=== PATIENT | female | born 1955 | race Caucasian/White ===

== ENCOUNTER → 2016-07-16 | Outpatient (CLI) | payer BC ==
[~2016-07-16] MED LIST: ACET-1256 PO; CALC100T3 PO; OPTIRAY 320 IV PRN; [UNRECOGNIZED DRUG - CODE]; [UNRECOGNIZED DRUG - OTHER]
--- NOTE | 2016-07-16 10:59 | DIAGNOSTIC IMAGING REPORT ---
CT ABD/PELVIS IV AND ORAL CONT CLINICAL HISTORY: Adenopathy. Follow-up examination. COMPARISON STUDY: 08/07/2015 TECHNIQUE: Following the IV administration of 117 mL of Optiray-320, CT scan of the abdomen and pelvis was performed from the lung bases to the proximal femurs. Images are reviewed in the axial, sagittal, and coronal planes. IV contrast was administered without complication. CT DOSE: 584.24 mGy.cm FINDINGS: Lower chest: The lung bases are unremarkable. Liver: There are stable right lobe hepatic hypodense lesions numbering at least 4. The largest measures 19 mm. 2 of the lesions lesions demonstrate peripheral nodular enhancement, favoring hepatic hemangiomas.. Gallbladder: Unremarkable. Spleen: Normal in size and attenuation. Pancreas: Unremarkable. Adrenal glands: Unremarkable. Kidneys: There is symmetric renal cortical enhancement. The kidneys are normal in size without hydronephrosis. Bowel: There are no transition zones indicate bowel obstruction. There are no findings to indicate acute appendicitis. There is no evidence of acute diverticulitis. Peritoneum: There is no intraperitoneal free air or abdominal ascites. Vasculature: The abdominal aorta is normal in course and caliber. Adenopathy: There is been very slight interval increase in the size of mildly enlarged mesenteric lymph nodes. Mildly enlarged aortocaval lymph nodes remain stable Pelvic viscera: There is a stable 22 mm left ovarian cyst/follicle. Skeletal structures: No destructive osseous lesions are seen. There are postsurgical changes of a total right hip arthroplasty. IMPRESSION: 1. Stable hepatic hypodensities, likely representing hemangiomas 2. No evidence of bowel obstruction. No evidence of free air 3. No evidence of acute appendicitis, no evidence of diverticulitis 4. Minimal interval increase in the size of the mildly enlarged mesenteric lymph nodes. Mildly enlarged aortocaval lymph nodes remain stable. 5. Stable 22 mm left ovarian cyst/follicle Electronically signed by: Mariusz Snowden M.D. 07/16/2016 10:57 AM Dictated Date/Time: 07/16/2016 10:49 AM
== END | disposition home or self-care (01) ==
LOC: C.CTS 09:49
PROVIDERS: ATTEND Internal Medicine Gastroenterology
DX: R10.9 Unspecified abdominal pain (principal)

== ENCOUNTER → 2016-08-02 | Outpatient (CLI) | payer BC ==
[~2016-08-02] MED LIST changes: -OPTIRAY 320 IV PRN; +SINCALIDE INJ 1.8 MCG in SODIUM CHLORIDE 0.9% 100ML 100 ML IV ONE
--- NOTE | 2016-08-02 13:05 | DIAGNOSTIC IMAGING REPORT ---
NUCLEAR MEDICINE HEPATOBILIARY SCAN WITH EJECTION FRACTION ANALYSIS CLINICAL HISTORY: Dominant pain COMPARISON STUDY: CT scan dated 07/16/2016 FINDINGS: Patient was injected with 5.5 mCi of technetium 99 M Choletec. Anterior imaging was performed. Hepatic excretion appeared unremarkable. There was normal passage of activity into small bowel. The gallbladder was first visualized on the 10 minute image. At 1 hour, the patient was injected with 1.8 mcg of sincalide utilizing a 30 minute infusion. The gallbladder ejection fraction was normal measuring 92%. IMPRESSION: Normal study. No evidence of cystic duct obstruction. Normal gallbladder ejection fraction of 92%. Electronically signed by: Mariusz Snowden M.D. 08/02/2016 1:04 PM Dictated Date/Time: 08/02/2016 1:02 PM
== END | disposition home or self-care (01) ==
LOC: C.NUCL 10:02
PROVIDERS: ATTEND Internal Medicine Gastroenterology
DX: R10.11 Right upper quadrant pain (principal)

== ENCOUNTER → 2016-10-22 | Outpatient (CLI) | payer BC ==
[~2016-10-22] MED LIST changes: -SINCALIDE INJ 1.8 MCG in SODIUM CHLORIDE 0.9% 100ML 100 ML IV ONE
--- NOTE | 2016-10-22 07:58 | DIAGNOSTIC IMAGING REPORT ---
(BARIUM SWALLOW) ESOPHAGUS CLINICAL HISTORY: Dysphagia with solids sticking in upper esophagus. Reflux disease. COMPARISON STUDY: None. FLUOROSCOPY TIME: 0.9 minutes.. FINDINGS: The patient swallowed barium without difficulty. The esophagus is normal in course, motility and caliber. The contours of the hypopharynx are within normal limits. The barium tablet passed without difficulty. No hiatus hernia. No gastroesophageal reflux. IMPRESSION: Normal barium swallow. Electronically signed by: Rajesh Montero M.D. 10/22/2016 7:56 AM Dictated Date/Time: 10/22/2016 7:55 AM
== END | disposition home or self-care (01) ==
LOC: C.RAD 07:13
PROVIDERS: ATTEND Family Medicine
DX: R13.10 Dysphagia, unspecified (principal); K21.9 Gastro-esophageal reflux disease without esophagitis

== ENCOUNTER → 2016-12-06 | Outpatient (CLI) | payer BC ==
--- NOTE | 2016-12-06 14:24 | MAMMOGRAPHY REPORT ---
BILATERAL DIGITAL SCREENING MAMMOGRAM WITH CAD: 12/06/2016 CLINICAL HISTORY: Routine screening. Patient has no complaints. TECHNIQUE: Current study was also evaluated with a Computer Aided Detection (CAD) system. Bilateral CC and MLO views were obtained. COMPARISON: Comparison is made to exams dated: 12/01/2015 mammogram, 11/25/2014 mammogram, 09/22/2013 m ammogram, 09/18/2012 ultrasound, 09/18/2012 mammogram, and 09/23/2011 mammogram - [facility]. BREAST COMPOSITION: There are scattered areas of fibroglandular density in both breasts. FINDINGS: No suspicious masses, calcifications, or areas of architectural distortion are noted in ei ther breast. There has been no significant interval change compared to prior exams. IMPRESSION: ACR BI-RADS CATEGORY 1: NEGATIVE There is no mammographic evidence of malignancy. A 1 year screening mammogram is recommended. The pa tient will receive written notification of the results. Approximately 10% of breast cancers are not detected with mammography. A negative mammographic report should not delay biopsy if a clinically suggestive mass is present. Marlin Dewey M.D. /:12/06/2016 09:23:55 Tool Engineer: Lenora ROBLERO)([place]), [facility] letter sent: Normal 1/2 BI-RADS Code: ACR BI-RADS Category 1: Negative
== END | disposition home or self-care (01) ==
LOC: C.MAMM 08:51
PROVIDERS: ATTEND Family Medicine
DX: Z12.31 Encounter for screening mammogram for malignant neoplasm of breast (principal)